=== PATIENT | female | born 1990 | race Caucasian/White ===

== ENCOUNTER 2019-01-26 01:22 | Emergency (ER) | payer OTHER ==
[2019-01-26 02:38] VITALS: BP 141/116; PULSE 109; TEMP 97.6; BMI 30.9
[2019-01-26] MEDS ORDERED: SODIUM CHLORIDE 1,000 ML IV STA (02:41)
[2019-01-26] MEDS ORDERED: ACETAMINOPHEN 1000 MG/100 ML VIAL (NON FORMULARY) IVPB ONE (02:41)
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
[2019-01-26] MEDS ORDERED: ACETAMINOPHEN INJECTION 100 ML IVPB ONE (03:40)
== END 2019-01-26 06:11 | disposition home or self-care (01) ==
LOC: JER 01:22
PROC: 3E0337Z Introduction of Electrolytic and Water Balance Substance into Peripheral Vein, Percutaneous Approach (ICD-10-PCS; principal; 2019-01-26)
PROC: 3E033NZ Introduction of Analgesics, Hypnotics, Sedatives into Peripheral Vein, Percutaneous Approach (ICD-10-PCS; 2019-01-26)
DX: S00.83XA Contusion of other part of head, initial encounter (principal); Y04.2XXA Assault by strike against or bumped into by another person, initial encounter; Y93.89 Activity, other specified; Y92.038 Other place in apartment as the place of occurrence of the external cause; Y99.8 Other external cause status; Y07.03 Male partner, perpetrator of maltreatment and neglect
CPT/HCPCS: 70450-TC; 70486-TC; 84703; 96361; 96374; 99283-25; J0131; J7030

== ENCOUNTER 2025-08-08 15:18 | Inpatient (IN) | payer OTHER ==
[2025-08-08] MEDS ORDERED: CEFTRIAXONE 1 GM/50 ML BAG ONE (16:55)
[2025-08-08] MEDS ORDERED: ACETAMINOPHEN INJECTION 100 ML ONE (16:55)
[2025-08-08] MEDS: SODIUM CHLORIDE 0.9% 500 ML INFUS.BAG IV ONE (16:58)
[2025-08-08] MEDS: ACETAMINOPHEN 1000 MG/100 ML BAG IVPB ONE (17:01)
[2025-08-08 17:07] LABS: BG HCT 37.0 % (32.4-45.2); VENOUS BASE EXCESS 1.9 mmol/L (-2-2); VENOUS O2 SATURATION 61.4 % (70-80); VENOUS PCO2 44.0 mmHg (38-52); VENOUS PH 7.405 (7.310-7.410)
[2025-08-08 17:09] LABS: ABSOLUTE IMMATURE GRANULOCYTES 0.04 x10^3/uL (0.0-0.031); BASOPHILS # 0.04 x10^3/uL (0.01-0.08); EOSINOPHIL % 0.8 % (0.7-5.8); EOSINOPHILS # 0.06 x10^3/uL (0.04-0.36); MCHC 31.3 g/dl (32.2-35.5); MEAN CELL VOLUME 88.5 fl (79.4-94.8); MEAN PLT VOLUME 10.2 fl (9.4-12.3); MONOCYTE # 0.63 x10^3/uL (0.24-0.86); MONOCYTE % 7.9 % (4.7-12.5); RDW 13.7 % (12.1-16.8)
[2025-08-08 17:10] LABS: INR 1.02 (0.83-1.09); PROTHROMBIN TIME (PATIENT) 11.2 SEC (9.7-13.0)
[2025-08-08 17:10] LABS: URINE APPEARANCE CLOUDY; URINE BILIRUBIN NEGATIVE (NEGATIVE); URINE COLOR YELLOW; URINE GLUCOSE (UA) 3+ (NEGATIVE); URINE KETONE 1+ (NEGATIVE); URINE LEUK ESTERASE NEGATIVE (NEGATIVE); URINE NITRITE NEGATIVE (NEGATIVE); URINE PROTEIN NEGATIVE (NEGATIVE); URINE UROBILINOGEN 0.2 mg/dL (0.2-1.0)
[2025-08-08 17:13] LABS: ACTIVATED PTT 27.3 SECONDS (25.2-36.5)
[2025-08-08] MEDS: CEFTRIAXONE 1 GM in DEXTROSE 5%-WATER - 50 ML IVPB ONE (17:22)
[2025-08-08 17:25] LABS: GLUCOSE,RANDOM 356.0 mg/dL (74-106); TOT PROT 7.0 g/dl (6.4-8.2)
[2025-08-08 17:27] LABS: CO2 25.0 mmol/L (21-32)
[2025-08-08 17:28] LABS: ALK PHOS 144.0 U/L (40-150)
[2025-08-08 17:31] LABS: CREATININE 0.36 mg/dL (0.55-1.3); SGOT/AST 13.0 U/L (5-34); SGPT/ALT 7.0 U/L (0-55)
[2025-08-08 18:18] LABS: HCV DIAGNOSTIC IN-HOUSE W/RFLX NON-REACTIVE (NONREACTIVE); HIV INTERPRETATION NEGATIVE (NEGATIVE)
[2025-08-08] MEDS ORDERED: INSULIN REGULAR HUMAN 100 UNITS/ML *VIAL ONE (19:04)
[2025-08-08] MEDS ORDERED: POTASSIUM CHLORIDE ORAL LIQUID 20 MEQ/15 ML ONE (19:05)
[2025-08-08] MEDS: INSULIN REGULAR HUMAN 100 UNITS/ML *VIAL IVPUSH ONE (19:29)
[2025-08-08] MEDS: POTASSIUM CHLORIDE ORAL LIQUID 20 MEQ/15 ML PO ONE (19:30)
[2025-08-08] MEDS ORDERED: KETOROLAC TROMETHAMINE 15 MG/ML VIAL ONE (20:42)
[2025-08-08] MEDS: KETOROLAC TROMETHAMINE 15 MG/ML VIAL IM ONE (21:42)
[2025-08-08] MEDS ORDERED: FUROSEMIDE 40 MG/4 ML INJECTABLE VIAL ONE (21:56)
[2025-08-08] MEDS ORDERED: INSULIN GLARGINE (LANTUS) 100 UNITS/ML UNITS SQ ONE ×4 (21:56→22:00)
[2025-08-08] MEDS: INSULIN GLARGINE (LANTUS) 100 UNITS/ML UNITS SQ SCH (22:13)
[2025-08-08] MEDS ORDERED: METOPROLOL TARTRATE 25 MG TABLET (FP) ONE (22:16)
[2025-08-08] MEDS ORDERED: ATORVASTATIN CA 40 MG TABLET (FP) ONE (22:16)
[2025-08-08] MEDS: METOPROLOL TARTRATE 25 MG TABLET (FP) PO SCH (22:27)
[2025-08-08] MEDS: FUROSEMIDE 40 MG/4 ML INJECTABLE VIAL IVPUSH SCH (22:27)
[2025-08-08] MEDS: ATORVASTATIN CA 40 MG TABLET (FP) PO SCH (22:27)
[2025-08-08 23:16] LABS: COCAINE, UR NEGATIVE (NEGATIVE)
[2025-08-08 23:17] LABS: METHADONE, UR NEGATIVE (NEGATIVE); OPIATES, URI POSITIVE (NEGATIVE); PHENCYCLIDINE,URINE NEGATIVE (NEGATIVE); URINE AMPHETAMINES NEGATIVE (NEGATIVE); URINE BARBITURATES NEGATIVE (NEGATIVE); URINE BENZODIAZEPINES NEGATIVE (NEGATIVE)
[2025-08-09 00:01] VITALS: BMI 32.3
[2025-08-09] MEDS ORDERED: ACETAMINOPHEN 1000 MG/100 ML BAG IVPB PRN (00:08)
[2025-08-09] MEDS: morphine CARPU-JECT 2 MG/1 ML DISP.SYRIN IVPUSH ONE (00:33)
[2025-08-09] MEDS: INSULIN (NOVOLOG) ASPART 100 UNITS/ML 10ML VIAL SQ SCH (06:06)
[2025-08-09] MEDS: INSULIN (NOVOLOG) ASPART 100 UNITS/ML 10ML VIAL SQ ONE (06:06)
[2025-08-09] MEDS: INSULIN ASPART SLIDING SCALE (NOVOLOG) 1 VIAL SQ SCH (06:07)
[2025-08-09] MEDS ORDERED: NITROGLYCERIN SUBLINGUAL 1/150 0.4 MG TAB SL PRN ×2 (06:55→20:51)
[2025-08-09] MEDS ORDERED: morphine CARPU-JECT 2 MG/1 ML DISP.SYRIN IM PRN ×2 (06:55→20:51)
[2025-08-09] MEDS ORDERED: INSULIN (NOVOLOG) ASPART 100 UNITS/ML 10ML VIAL SQ SCH (07:00)
[2025-08-09] MEDS ORDERED: INSULIN ASPART SLIDING SCALE (NOVOLOG) 1 VIAL SQ ONE (08:37)
[2025-08-09 09:54] LABS: MCHC 31.2 g/dl (32.2-35.5); MEAN CELL VOLUME 88.4 fl (79.4-94.8); MEAN PLT VOLUME 10.2 fl (9.4-12.3); RDW 13.6 % (12.1-16.8)
[2025-08-09] MEDS: ASPIRIN COATED 81 MG TABLET.EC PO SCH (09:58)
[2025-08-09] MEDS: LISINOPRIL 10 MG TABLET PO SCH (09:59)
[2025-08-09] MEDS: CEFTRIAXONE 1 GM in DEXTROSE 5%-WATER - 50 ML IVPB SCH (09:59)
[2025-08-09] MEDS: ENOXAPARIN NA (PORCINE) 40 MG/0.4 ML DISP.SYRIN SQ SCH (10:00)
[2025-08-09 10:21] LABS: GLUCOSE,RANDOM 79.0 mg/dL (74-106); TOT PROT 6.8 g/dl (6.4-8.2)
[2025-08-09 10:22] LABS: CO2 29.0 mmol/L (21-32)
[2025-08-09 10:24] LABS: ALK PHOS 140.0 U/L (40-150)
[2025-08-09 10:26] LABS: SGOT/AST 12.0 U/L (5-34); SGPT/ALT 8.0 U/L (0-55)
[2025-08-09 10:27] LABS: CREATININE 0.45 mg/dL (0.55-1.3)
[2025-08-09 10:34] LABS: IRON SERUM 25.0 ug/dL (50-175)
[2025-08-09 10:58] LABS: N-TERMINAL BNP 431.8 pg/mL (0-299.9)
[2025-08-09] MEDS: MAGNESIUM SULF 50% (8.12 MEQ/2 ML-1 GM VIAL) IVPB ONE (16:02)
[2025-08-09] MEDS: MAGNESIUM SULFATE IN WATER 2 GM/50 ML IVPB IVPB ONE (16:23)
[2025-08-09] MEDS: NAPROXEN 500 MG TABLET PO SCH (17:16)
[2025-08-09] MEDS: INSULIN GLARGINE (LANTUS) 100 UNITS/ML UNITS SQ SCH (22:02)
[2025-08-09] MEDS: METOPROLOL TARTRATE 25 MG TABLET (FP) PO SCH (22:03)
[2025-08-09] MEDS: ATORVASTATIN CA 40 MG TABLET (FP) PO SCH (22:03)
[2025-08-10] MEDS: INSULIN ASPART SLIDING SCALE (NOVOLOG) 1 VIAL SQ SCH (07:31)
[2025-08-10] MEDS: NAPROXEN 500 MG TABLET PO SCH (08:29)
[2025-08-10] MEDS: ASPIRIN COATED 81 MG TABLET.EC PO SCH (09:46)
[2025-08-10] MEDS: FUROSEMIDE 40 MG/4 ML INJECTABLE VIAL IVPUSH SCH (09:46)
[2025-08-10] MEDS: ENOXAPARIN NA (PORCINE) 40 MG/0.4 ML DISP.SYRIN SQ SCH (09:46)
[2025-08-10] MEDS: LISINOPRIL 20 MG TABLET PO SCH (09:47)
[2025-08-10] MEDS ORDERED: LISINOPRIL 10 MG TABLET PO SCH (10:00)
[2025-08-10 12:14] VITALS: RESP 18
[2025-08-10 17:23] VITALS: BP 135/78; PULSE 80; TEMP 98.2
== END 2025-08-10 15:20 | disposition left against medical advice (07) | DRG 351 ==
LOC: JER 15:18 → JERBED 20:22 → J6W TELE 23:12
PROVIDERS: ADMIT Hospitalist; ATTEND Internal Medicine
DX: M79.89 Other specified soft tissue disorders (principal); E11.65 Type 2 diabetes mellitus with hyperglycemia; I10 Essential (primary) hypertension; N39.0 Urinary tract infection, site not specified; R60.0 Localized edema; M25.562 Pain in left knee; M25.561 Pain in right knee; M25.662 Stiffness of left knee, not elsewhere classified; M25.661 Stiffness of right knee, not elsewhere classified
CPT/HCPCS: 36415; 71045-TC-FY; 71275-TC; 73562-TC-LT-FY; 73562-TC-RT-FY; 73610-TC-LT-FY; 73610-TC-RT-FY; 80053; 80307; 81003; 82607; 82728; 82746; 82803; 82947; 82962; 83036; 83540; 83550; 83605; 83735; 83880; 84436; 84443; 84479; 84484; 84703; 85025; 85610; 85651; 85730; 86038; 86140; 86160; 86200; 86225; 86431; 86618; 86803; 86850; 86900; 86901; 87040; 87086; 87389; 87637-QW; 87899; 93005; 93010; 93308; 93970-TC; 99285-25; Q9967

== ENCOUNTER 2025-08-19 19:49 | Emergency (ER) | payer OTHER ==
[2025-08-19 20:08] VITALS: TEMP 98.3; BMI 23.9
[2025-08-19] MEDS ORDERED: ACETAMINOPHEN 325 MG TABLET (FP) ONE (21:13)
[2025-08-19] MEDS: ACETAMINOPHEN 325 MG TABLET (FP) PO ONE (21:20)
[2025-08-19] MEDS ORDERED: DIPHTH,PERTUSS(ACELL),TET 0.5 ML DISP.SYRIN IM ONE (21:50)
[2025-08-19] MEDS: DIPHTH,PERTUSS(ACELL),TET 0.5 ML DISP.SYRIN IM ONE (21:59)
[2025-08-20 00:43] VITALS: BP 135/95; PULSE 73; RESP 19
== END 2025-08-20 00:42 | disposition home or self-care (01) ==
LOC: JER 19:49
PROC: 3E0234Z Introduction of Serum, Toxoid and Vaccine into Muscle, Percutaneous Approach (ICD-10-PCS; principal; 2025-08-19)
DX: S00.81XA Abrasion of other part of head, initial encounter (principal); M25.561 Pain in right knee; M79.605 Pain in left leg; M54.50 Low back pain, unspecified; Z23 Encounter for immunization; W01.198A Fall on same level from slipping, tripping and stumbling with subsequent striking against other object, initial encounter
CPT/HCPCS: 36415; 70450-TC; 70486-TC; 72131-TC; 72170-TC-FY; 73560-TC-RT-FY; 73590-TC-RT-FY; 84703; 90471; 90715; 99285-25